=== PATIENT | female | born 1955 | race Caucasian/White ===

== ENCOUNTER → 2023-10-26 09:41 | Outpatient (CLI) | payer MEDICARE, OTHER, SELFPAY ==
--- NOTE | 2023-10-26 09:46 | DI.NM.S_ITS ---
PROCEDURE: NM MERRY PERF SPECT R&S PHARM Rest and pharmacological stress myocardial perfusion SPECT with gated imaging and ejection fraction RADIOPHARMACEUTICAL: 12.1 mCi Tc-99m tetrafosmin IV at rest and 25.1 mCi Tc-99m tetrafosmin IV at peak effect of pharmacological stress. A [id number] was performed. INDICATIONS: Paroxysmal atrial fibrillation TECHNIQUE: Radiopharmaceutical was injected at peak stress test, and also at rest. SPECT images were obtained. SPECT myocardial perfusion images were displayed in short axis, horizontal long axis, and vertical long axis views. Gated images were reviewed using [employer] software. COMPARISON: None. CARDIAC STRESS: A pharmacologic stress test was performed under the supervision of an attending staff, using an infusion of regadenoson 0.4 mg IV. Hemodynamic data: There is normal blood pressure and heart rate response to pharmacologic stress. Symptoms: The patient denied anginal chest pain. EKG: ECG with LBBB. No diagnostic changes of ischemia; no ectopy. FINDINGS: Raw data: There is good myocardial uptake of radiotracer. No significant motion artifacts. Yrml-vv-nhwfv ratio is 0.38 (normal is less than 0.38 for tetrafosmin tracer). Left ventricle function: Gated images demonstrate normal left ventricular wall thickening. No segmental wall motion abnormalities. No transient ischemic dilation; TID is 1.19 (normal less than 1.3). Left ventricle resting end diastolic volume is 99 mL. Left ventricle stress ejection fraction is 71%; normal range is above 45%. Myocardial perfusion: There is normal distribution of activity in the right and left ventricular myocardium. No fixed or reversible perfusion defects. IMPRESSION: Lower study. No evidence of pharmacologic induced ischemia or scar. Normal LV size and function. Dictated by: Taylor Corrigan D.O. on 10/26/2023 at 16:34 Approved by: Taylor Corrigan D.O. on 10/26/2023 at 16:37
--- NOTE | 2023-10-26 09:47 | DI.ECHO.S_ITS ---
[facility] +---------+ : : [address] : : : : [id number] : : : : Phone: [phone]+ Echocardiogram Report + + :Name: RC RUBIO Study Date: 10/26/2023 Height: 65 in : :[facility] ReadingLocation: Weight: 196 lb : : Gender: Female BSA: 2.0 m2 : :: 1955 Age: 68 yrs BP: 152/84 mmHg: :Reason For Study: ATRIAL FIBRILLATION : :Ordering Physician: LEXI, : :KAREN Performed By: Tate Richmond : :Referring: KAREN COUCH : + + Interpretation Summary 1) Normal left ventricular thickness, size, and systolic function (EF 55-60%). 2) Normal right ventricular size and function. 3) No significant valvular abnormalities. 4) No prior Echo available for comparison. Procedure: A two-dimensional transthoracic echocardiogram with color flow and Doppler was performed. The study quality was technically adequate. There is no prior echocardiogram noted for this patient. The heart rate ranged between 63-95 bpm during the study. Left Ventricle: The left ventricle is normal in size. Left ventricular wall thickness is normal. Proximal septal thickening is noted. The ejection fraction is estimated to be 55-60%. Septal motion is consistent with conduction abnormality. Diastolic parameters suggest a relaxation abnormality of the left ventricle, consistent with probable normal filling pressures. Right Ventricle: The right ventricle grossly appears normal in size with probable normal systolic function. Atria: The left atrial size is normal. Right atrial size is normal. The interatrial septum grossly appears intact with no obvious evidence for an atrial septal defect. Mitral Valve: The mitral valve is normal in structure and function. There is no mitral valve stenosis. There is trace mitral regurgitation. Aortic Valve: The aortic valve is grossly normal. There is no aortic valve stenosis. No aortic regurgitation is present. Tricuspid Valve: The tricuspid valve is normal in structure and function. There is no tricuspid stenosis. There is trace tricuspid regurgitation. The right ventricular systolic pressure is estimated to be at least 26 mmHg based on an estimated right atrial pressure of 3 mm Hg. Pulmonic Valve: The pulmonic valve is not well visualized. There is no pulmonic valvular stenosis. There is no pulmonic valvular regurgitation. Great Vessels: The aortic root is normal size. The dimensions of the ascending aorta are normal. The IVC is of normal diameter and collapses greater than 50% with a sniff. This suggests a low right atrial pressure of 3 mm Hg. Pericardium/ Pleura There is no pericardial effusion. There is no pleural effusion. MMode/2D Measurements & Calculations LVIDd: 4.8 cm LVOT diam: 1.9 cm LVIDs: 3.3 cm Ao root diam: 3.0 cm FS: 31.5 % asc Aorta Diam: 3.0 cm IVSd: 1.5 cm Ao Arch Diam (Prox Trans): 2.8 cm LVPWd: 0.96 cm LV peacock. diameter/BSA (cm/m^2): 2.4 LV sys. diameter/BSA (cm/m^2): 1.7 LA A2 area: 17.7 cm2 RA long axis: 4.1 cm LA A4 area: 19.2 cm2 RA area: 13.5 cm2 LA length (vol): 5.6 cm RA vol: 37.7 ml LA vol: 51.2 ml RA : 19.2 ml/m2 LA vol index: 26.1 ml/m2 IVC diam: 1.4 cm RVD1 (basal): 4.4 cm RVD2 (mid): 4.1 cm TAPSE: 2.0 cm Doppler Measurements & Calculations Ao V2 max: 166.9 cm/sec LVOT Max Vipul: 110.2 cm/sec Ao V2 mean: 112.0 cm/sec LV V1 max P.9 mmHg Ao max P.1 mmHg LV V1 VTI: 23.3 cm Ao mean P.0 mmHg DANITZA(I,D): 2.0 cm2 Ao V2 VTI: 32.8 cm DANITZA(V,D): 1.8 cm2 sev ratio: 0.71 DANITZA indexed to BSA (cm^2/m^2): 1.0 MV E max vipul: 97.0 cm/sec TR max vipul: 243.1 cm/sec MV A max vipul: 106.1 cm/sec TR max P.7 mmHg MV E/A: 0.91 PA V2 max: 130.1 cm/sec Med Peak E' Vipul: 7.5 cm/sec PA V2 mean: 83.6 cm/sec E/E' med: 12.9 PA mean P.4 mmHg Lat Peak E' Vipul: 7.4 cm/sec PA pr(Accel): 41.3 mmHg E/E' lat: 13.1 E/e' average: 13.0 MV dec time: 0.22 sec SV(LVOT): 64.8 ml Reading Physician:04:59 AM
== END ==
LOC: NUCM 09:45
PROVIDERS: Referring Provider Internal Medicine Cardiovascular Disease; Visit Provider Internal Medicine Cardiovascular Disease
DX: I48.0 Paroxysmal atrial fibrillation (principal); I44.7 Left bundle-branch block, unspecified
CPT/HCPCS: 78452; 93017; 93306; A9502; J2785